=== PATIENT | male | born 1990 | race African-American/Black ===

== ENCOUNTER 2017-03-16 21:09 | Emergency (ER) | payer MEDICAID ==
[~2017-03-16] VITALS: Ht 180.3 cm; Wt 99.8 kg
--- NOTE | 2017-03-16 21:09 | NUR ---
PATIENT PRESENTS TO ED WITH C/O AB PAIN NAUSEA AND VOMIT X 2 HOURS; SKIN IS PINK/WARM/DRY; AAOX4 WITH EVEN AND STEADY GAIT; LUNGS CLEAR BL; HR EVEN AND REGULAR; PT DENIES ANY FEVER, CP, SOB, OR COUGH AT THIS TIME; PATIENT STATES PAIN OF 7/10 AT THIS TIME; VSS; PATIENT POSITIONED FOR COMFORT; HOB ELEVATED; BEDRAILS UP X2; BED DOWN. ER MD MADE AWARE OF PT STATUS.
--- NOTE | 2017-03-16 21:10 | NUR ---
Dr. Ayala evaluating patient
[2017-03-16 21:13] VITALS: BP 131/74
--- NOTE | 2017-03-16 21:17 | NUR ---
PT ERIK BLS. TAKEN TO BED 5
[2017-03-16] MEDS ORDERED: NACL 0.9% 1,000 ML IV ONE (21:30)
[2017-03-16] MEDS ORDERED: KETOROLAC 30 MG/ML VIAL IVP ONE (21:30)
[2017-03-16 22:22] LABS: BASOPHILS # (AUTO) 0.3 K/uL (0.00-0.22); BASOPHILS % (AUTO) 2.7 % (0.0-2.0); EOSINOPHILS # (AUTO) 0.2 K/uL (0-0.4); EOSINOPHILS % (AUTO) 2.5 % (0.0-4.0); HEMATOCRIT 45.9 % (36-52); MEAN CORPUSCULAR HEMOGLOBIN 28 pg (27-31); MEAN CORPUSCULAR HGB CONC 33 g/dL (33-37); MEAN CORPUSCULAR VOLUME 86 fL (80-94); MONOCYTES # (AUTO) 0.8 K/uL (0.8-1.0); MONOCYTES % (AUTO) 8.3 % (1.7-9.3); NEUTROPHILS # (AUTO) 7.2 K/uL (1.8-7.7); NEUTROPHILS % (AUTO) 75.5 % (42.2-75.2); PLATELET COUNT (AUTO) 223 K/uL (140-450); RED BLOOD CELL COUNT(AUTO) 5.31 MIL/uL (4.20-6.10); RED CELL DISTRIBUTION WIDTH 12.2 % (11.6-13.7); WHITE BLOOD COUNT (AUTO) 9.5 K/uL (4.8-10.8)
[2017-03-16] MEDS ORDERED: ONDANSETRON 4 MG/2 ML VIAL IVP ONE (22:35)
[2017-03-16 22:50] LABS: ANION GAP 14.2 (8-16); CARBON DIOXIDE 25.8 mmol/L (21-32)
[2017-03-16 22:51] LABS: ALBUMIN 4.3 g/dL (3.4-5.0); CALCIUM 8.7 mg/dL (8.5-10.1); CREATININE 1.2 mg/dL (0.7-1.3); TOTAL BILIRUBIN 1.1 mg/dL (0.0-1.0); TOTAL PROTEIN, SERUM 8.7 g/dL (6.4-8.2)
[2017-03-16 22:54] LABS: APPEARANCE,URINE SL CLOUDY (CLEAR); BILIRUBIN,URINE NEGATIVE (NEGATIVE); BLOOD, URINE TRACE-I (NEGATIVE); COLOR,URINE YELLOW (YELLOW); LEUKOCYTE ESTERASE ,URINE NEGATIVE (NEGATIVE); NITRITE, URINE NEGATIVE (NEGATIVE); PROTEIN,URINE 1+ (NEGATIVE); UGLUCOSE NEGATIVE (NEGATIVE); UROBILINOGEN,URINE 0.2 EU/dL (0.2 - 1)
[2017-03-16 23:10] LABS: BACTERIA,URINE FEW /HPF (None Seen); MUCUS,URINE 4+ /LPF (None Seen); RBC,URINE 0-5 (RARE) /HPF (0-5); SQUAMOUS EPITHELIAL CELL,UR 0-3 (FEW) /LPF (0-3 (FEW)); WBC,URINE 0-5 (RARE) /HPF (0-5)
--- NOTE | 2017-03-16 23:41 | NUR ---
IV removed, catheter intact and site benign. Applied folded 4x4 gauze and tape to stop bleeding.
--- NOTE | 2017-03-16 23:45 | NUR ---
Patient discharged with v/s stable BY ER MD DR SUAREZ. Written and verbal after care instructions given and explained BY ER MD DR SUAREZ . Patient verbalized understanding. Ambulatory with steady gait. All questions addressed prior to discharge BY ER MD DR SUAREZ. Advised to follow up with PMD.
[2017-03-16 23:46] VITALS: BP 122/76
== END 2017-03-16 23:45 | disposition home or self-care (01) ==
LOC: MED 21:09
DX: K52.9 Noninfective gastroenteritis and colitis, unspecified (principal)
CPT/HCPCS: 36415; 80053; 81001; 82150; 83690; 85025; 96361; 96374; 96375; 99285; J1885; J2405; J7030

== ENCOUNTER 2017-06-27 09:58 | Emergency (ER) | payer MEDICAID ==
[~2017-06-27] VITALS: Ht 180.3 cm; Wt 96.3 kg
[2017-06-27 10:09] VITALS: BP 129/87
--- NOTE | 2017-06-27 10:14 | NUR ---
Patient ambulated to bed 3
--- NOTE | 2017-06-27 10:15 | NUR ---
PATIENT PRESENTS TO ED WITH C/O N/V X 1 DAY WITH ABDOMINAL PAIN TO LEFT UPPER QUADRANT. PT STATES HE HAS VOMITED X 5 TIMES TODAY AND IS UNABLE TO KEEP FOOD OR FLUIDS DOWN. PT DENIES DIARRHEA. SKIN IS PINK/WARM/DRY; AAOX4 WITH EVEN AND STEADY GAIT; LUNGS CLEAR BL; HR EVEN AND REGULAR; PT DENIES ANY FEVER, CP, SOB, OR COUGH AT THIS TIME; PATIENT STATES PAIN OF 0/10 AT THIS TIME; VSS; PATIENT POSITIONED FOR COMFORT; HOB ELEVATED; BEDRAILS UP X2; BED DOWN. ER MD MADE AWARE OF PT STATUS.
--- NOTE | 2017-06-27 10:22 | NUR ---
DR. UNDERWOOD EVALUATING PT AT BEDSIDE.
[2017-06-27] MEDS: ALUMINUM HYD/MAG/SIMETHICONE 30 ML UDC PO ONE (10:32)
[2017-06-27] MEDS: PANTOPRAZOLE 40 MG TABEC PO ONE (10:33)
[2017-06-27] MEDS: ONDANSETRON 4 MG ODT PO ONE (10:33)
--- NOTE | 2017-06-27 10:51 | NUR ---
PT RESTING COMFORTABLY. NO C/O PAIN OF DISCOMFORT AT THIS TIME. PT DENIES N/V. WILL CONTINUE TO MONITOR.
[2017-06-27] MEDS: ACETAMINOPHEN 325 MG TAB PO ONE (11:04)
[2017-06-27 11:10] VITALS: BP 120/61
--- NOTE | 2017-06-27 11:10 | NUR ---
Patient discharged with v/s stable. Written and verbal after care instructions given and explained. Patient alert, oriented and verbalized understanding of instructions. Ambulatory with steady gait. All questions addressed prior to discharge. ID band removed. Patient advised to follow up with PMD. Rx of ZOFRAN AND OMEPRAZOLE given. Patient educated on indication of medication including possible reaction and side effects. Opportunity to ask questions provided and answered.
== END 2017-06-27 11:10 | disposition home or self-care (01) ==
LOC: MED 09:58
DX: K21.9 Gastro-esophageal reflux disease without esophagitis (principal); F17.210 Nicotine dependence, cigarettes, uncomplicated
CPT/HCPCS: 99284; S0119

== ENCOUNTER 2017-09-22 18:51 | Emergency (ER) | payer MEDICAID ==
[~2017-09-22] VITALS: Ht 180.3 cm; Wt 107.2 kg
[2017-09-22 19:15] VITALS: BP 130/96
--- NOTE | 2017-09-22 19:50 | NUR ---
27Y M BIB FAMILY C/O FLU-LIKE SYMPTOMS, CHILLS, ODELL, NASAL CONGESTION, AND CHRONIC BRONCHITIS. PT DENIES ANY N/V/D, CP AT THE MOMENT. PT AAOX4.
[2017-09-22] MEDS ORDERED: ALBUTEROL SULFATE/IPRATROPIU 3 ML SOL IH ONE (20:05)
[2017-09-22] MEDS ORDERED: IBUPROFEN 800 MG TAB PO ONE (20:05)
--- NOTE | 2017-09-22 20:31 | NUR ---
FLU COMPLETED AND PLACED IN SPECIMEN CONTAINER
--- NOTE | 2017-09-22 20:58 | NUR ---
LAB CALLED, POSITIVE FOR FLU A NEG FLU B; ER MD DR WOO MADE AWARE.
[2017-09-22 21:11] VITALS: BP 122/71
--- NOTE | 2017-09-22 21:11 | NUR ---
Patient discharged with v/s stable. Written and verbal after care instructions given and explained. Patient alert, oriented and verbalized understanding of instructions. Ambulatory with steady gait. All questions addressed prior to discharge. ID band removed. Patient advised to follow up with PMD. Rx of ALBUTEROL INHALER, TAMIFLU 75MG, MOTRIN 800MG, AND PREDNISONE 20MG given. Patient educated on indication of medication including possible reaction and side effects. Opportunity to ask questions provided and answered.
== END 2017-09-22 21:11 | disposition home or self-care (01) ==
LOC: MED 18:51
DX: J09.X2 Influenza due to identified novel influenza A virus with other respiratory manifestations (principal); K21.9 Gastro-esophageal reflux disease without esophagitis; F17.210 Nicotine dependence, cigarettes, uncomplicated
CPT/HCPCS: 36415; 71045; 87804; 94640; 94760; 99285; J7620

== ENCOUNTER 2018-04-20 11:08 | Emergency (ER) | payer MEDICAID ==
[~2018-04-20] VITALS: Ht 180.3 cm; Wt 103.6 kg
[2018-04-20 11:32] VITALS: BP 143/90
--- NOTE | 2018-04-20 11:39 | NUR ---
PT AMBULATES TO BED 2
--- NOTE | 2018-04-20 11:42 | NUR ---
PT. CAME INTO THE ED DUE TO PAINFUL URINATION X 5 DAYS. PT. STATES " I HAD UNPROTECTED SEX 6 DAYS AGO AND ABOUT 5 DAYS AGO MY TESTICLES HAVE BEEN FEELING SORE". PT. HAS PAINFUL URINATION AND FREQUENCY, DENIES ANY DISCHARGE. NO FEVERS . NO N/V/D. PT. STATES " SKIN IS PEELING OFF AROUND HIS PENIS". DENIES ANY MED HX, DENIES ANY MEDICATION ALLERGIES. ER MD NOTIFIED. WILL CONTINUE TO MONITOR. SAFETY PRECAUTIONS IN PLACE. VSS.
--- NOTE | 2018-04-20 12:45 | NUR ---
PT. RESTING COMFORTABLY IN BED, RR EVEN AND UNLABORED. BLANKET PROVIDED. VSS. AT THIS TIME.
[2018-04-20 12:47] LABS: APPEARANCE,URINE CLEAR (CLEAR); BILIRUBIN,URINE 1+ (NEGATIVE); BLOOD, URINE NEGATIVE (NEGATIVE); COLOR,URINE YELLOW (YELLOW); LEUKOCYTE ESTERASE ,URINE NEGATIVE (NEGATIVE); NITRITE, URINE NEGATIVE (NEGATIVE); UGLUCOSE NEGATIVE (NEGATIVE)
--- NOTE | 2018-04-20 13:21 | NUR ---
PT. IS DISCHARGED BUT D/C PAPERWORK IS NOT AVAILABLE AT THIS TIME. WILL CONTINUE TO MONITOR.
[2018-04-20 13:50] VITALS: BP 140/88
--- NOTE | 2018-04-20 13:50 | NUR ---
Patient discharged with v/s stable. Written and verbal after care instructions given and explained. Patient alert, oriented and verbalized understanding of instructions. Ambulatory with steady gait. All questions addressed prior to discharge. ID band removed. Patient advised to follow up with PMD. Rx of CLOTRIMAZOLE AND DOXYCYCLINE 100MG CAPSULE given. Patient educated on indication of medication including possible reaction and side effects. Opportunity to ask questions provided and answered.
[2018-04-22 06:21] LABS: CHLAMYDIA TRACHOMATIS AMP DNA Negative (Negative)
== END 2018-04-20 13:50 | disposition home or self-care (01) ==
LOC: MED 11:08
DX: B37.89 Other sites of candidiasis (principal); N34.2 Other urethritis; N47.8 Other disorders of prepuce; K21.9 Gastro-esophageal reflux disease without esophagitis
CPT/HCPCS: 36415; 81003; 87491; 99284

== ENCOUNTER 2018-10-14 09:32 | Emergency (ER) | payer MEDICAID ==
[~2018-10-14] VITALS: Ht 180.3 cm; Wt 99.8 kg
[2018-10-14 09:55] VITALS: BP 140/78
--- NOTE | 2018-10-14 10:13 | NUR ---
BIB SELF WITH C/O PENILE PAIN, DICOMFORT, IRRITATION X 1 WEEK, IRRITATION WITH URINATION, - BURNING, - SWELLING, + REDNESS, - DISCHARGE. PT REPORTS UNPROTECTED SEXUAL INTERCOURSE 2-3 WEEKS AGO. VSS; PATIENT POSITIONED FOR COMFORT; HOB ELEVATED; BEDRAILS UP X1; BED DOWN. ER MD MADE AWARE OF PT STATUS.
--- NOTE | 2018-10-14 11:15 | NUR ---
Patient discharged with v/s stable. Written and verbal after care instructions given and explained. Patient alert, oriented and verbalized understanding of instructions. Ambulatory with steady gait. All questions addressed prior to discharge. ID band removed. Patient advised to follow up with PMD. Rx of mupirocin given. Patient educated on indication of medication including possible reaction and side effects. Opportunity to ask questions provided and answered.
[2018-10-14 11:19] VITALS: BP 140/78
== END 2018-10-14 11:15 | disposition home or self-care (01) ==
LOC: MED 09:32
DX: N48.1 Balanitis (principal); K21.9 Gastro-esophageal reflux disease without esophagitis
CPT/HCPCS: 81002; 99283

== ENCOUNTER 2019-09-03 15:48 | Emergency (ER) | payer MEDICAID ==
[~2019-09-03] VITALS: Ht 180.3 cm; Wt 97.1 kg
[2019-09-03 15:57] VITALS: BP 129/73
--- NOTE | 2019-09-03 16:09 | NUR ---
Patient ambulated to bed 2. RN evaluating patient at bedside.
--- NOTE | 2019-09-03 16:56 | NUR ---
PATIENT PRESENTS TO ED WITH THROAT AND EAR PAIN X 2 DAYS. PT STATES 8/10 SHARP PAIN UPON SWALLOWING. PT ALSO WITH PRODUCTIVE COUGH X 2 DAYS. PT TOOK TYLENOL THIS AM WHICH PROVIDED NO RELIEF. DENIES FVER, RUNNY NOSE, N/V/D; LUNGS CLEAR BL; VSS; PATIENT POSITIONED FOR COMFORT; HOB ELEVATED; BEDRAILS UP X2; BED DOWN. ER MD MADE AWARE OF PT STATUS. PMH: CHRONIC BRONCHITIS MEDS: ALBUTEROL INHALER PRN NKA
[2019-09-03] MEDS ORDERED: KETOROLAC 30 MG/ML VIAL IM ONE (19:10)
--- NOTE | 2019-09-03 19:12 | NUR ---
RECIVED REPORT FROM NELSON CHENEY.
--- NOTE | 2019-09-03 19:21 | NUR ---
TORADOL IM 30MG GIVEN FOR C/O 03/10 BACK AND THROAT PAIN. FLU A & B CAME BACK NEGATIVE.
--- NOTE | 2019-09-03 19:30 | NUR ---
Patient discharged with v/s stable. Written and verbal after care instructions given and explained. Patient alert, oriented and verbalized understanding of instructions. Ambulatory with steady gait. All questions addressed prior to discharge. ID band removed. Patient advised to follow up with PMD. Rx of PROMETHAZINE, NAPROXEN given. Patient educated on indication of medication including possible reaction and side effects. Opportunity to ask questions provided and answered.
[2019-09-03 19:40] VITALS: BP 129/73
== END 2019-09-03 19:30 | disposition home or self-care (01) ==
LOC: MED 15:48
DX: J06.9 Acute upper respiratory infection, unspecified (principal); M54.5 Low back pain; K21.9 Gastro-esophageal reflux disease without esophagitis; J42 Unspecified chronic bronchitis; F17.210 Nicotine dependence, cigarettes, uncomplicated; Z86.73 Personal history of transient ischemic attack (TIA), and cerebral infarction without residual deficits
CPT/HCPCS: 87804; 96372; 99283; J1885

== ENCOUNTER 2019-12-21 21:54 | Emergency (ER) | payer MEDICAID ==
[~2019-12-21] VITALS: Ht 180.3 cm; Wt 81.6 kg
[2019-12-21 22:04] VITALS: BP 148/92
[2019-12-21] MEDS: ONDANSETRON 4 MG/2 ML VIAL IVP ONE (23:00)
[2019-12-21] MEDS: KETOROLAC 30 MG/ML VIAL IVP ONE (23:00)
[2019-12-21] MEDS: NACL 0.9% 1,000 ML IV ONE ×2 (23:05→23:59)
[2019-12-21 23:20] LABS: BARBITURATE, URINE NEGATIVE ng/ml (NEG <=200); BENZODIAZEPINE, URINE NEGATIVE ng/mL (NEG <=200); COCAINE, URINE NEGATIVE ng/mL (NEG <=300)
[2019-12-21 23:21] LABS: CANNABINOID, URINE POSITIVE ng/mL (NEG <=50); OPIATE, URINE NEGATIVE ng/mL (NEG <=2000); PHENCYCLIDINE SCREEN,URINE NEGATIVE ng/mL (NEG <=25)
[2019-12-21 23:28] LABS: BASOPHILS # (AUTO) 0.1 K/uL (0.00-0.22); BASOPHILS % (AUTO) 0.8 % (0.0-2.0); EOSINOPHILS # (AUTO) 0.1 K/uL (0-0.4); EOSINOPHILS % (AUTO) 1.9 % (0.0-4.0); HEMATOCRIT 41.3 % (36-52); LYMPHOCYTES # (AUTO) 1.4 K/uL (2.0-11.5); LYMPHOCYTES % (AUTO) 20.8 % (20.5-51.1); MEAN CORPUSCULAR HEMOGLOBIN 30 pg (27-31); MEAN CORPUSCULAR HGB CONC 34 g/dL (33-37); MEAN CORPUSCULAR VOLUME 88.2 fL (80-94); MONOCYTES # (AUTO) 0.6 K/uL (0.8-1.0); MONOCYTES % (AUTO) 9.1 % (1.7-9.3); NEUTROPHILS # (AUTO) 4.5 K/uL (1.8-7.7); NEUTROPHILS % (AUTO) 67.4 % (42.2-75.2); PLATELET COUNT (AUTO) 242 K/uL (140-450); RED BLOOD CELL COUNT(AUTO) 4.69 MIL/uL (4.20-6.10); RED CELL DISTRIBUTION WIDTH 13.2 % (11.6-13.7)
[2019-12-21 23:30] LABS: WHITE BLOOD COUNT (AUTO) 6.7 K/uL (4.8-10.8)
[2019-12-21 23:38] LABS: ANION GAP 13.7 (8-16); CARBON DIOXIDE 26.6 mmol/L (21-32); CHLORIDE 102 mmol/L (98-107); CREATININE 1.3 mg/dL (0.6-1.3); GFR ARICAN-AMERICAN 83 mL/min (>90); GLUCOSE 107 mg/dL (74-106); POTASSIUM 3.3 mmol/L (3.5-5.1); SODIUM SERUM 139 mmol/L (136-145); UREA NITROGEN, BLOOD 15 mg/dL (7-18)
[2019-12-21 23:43] LABS: ALBUMIN 3.7 g/dL (3.4-5.0); ASPARTATE AMINOTRANSFERASE 24 U/L (15-37)
[2019-12-21 23:44] LABS: ACETAMINOPHEN < 0.5 ug/ml (10-30); SALICYLATE < 2.8 mg/dL (2.8-20.0)
[2019-12-22 00:41] VITALS: BP 148/92
== END 2019-12-22 00:40 | disposition home or self-care (01) ==
LOC: MED 21:54
DX: K31.84 Gastroparesis (principal); F12.90 Cannabis use, unspecified, uncomplicated; K21.9 Gastro-esophageal reflux disease without esophagitis
CPT/HCPCS: 36415; 74176; 80053; 80305; 83690; 85025; 87040; 96361; 96374; 96375; 99284; G0480; G0482; J1885; J2405; J7030

== ENCOUNTER 2020-06-05 14:47 | Emergency (ER) | payer MEDICAID ==
[~2020-06-05] VITALS: Ht 180.3 cm; Wt 103.4 kg
[2020-06-05 15:02] VITALS: BP 143/84
--- NOTE | 2020-06-05 15:06 | NUR ---
29/M BIB SELF C/O COUGH, SORE THROAT, ODELL,BODY ACHE 6/10 ,CHILL ON & OFF X 5 DAYS. MED HX: ASTHMA.
--- NOTE | 2020-06-05 16:24 | NUR ---
COVID SWAB DONE.
--- NOTE | 2020-06-05 16:34 | NUR ---
Patient discharged with v/s stable. Written and verbal after care instructions given and explained. Patient alert, oriented and verbalized understanding of instructions. Ambulatory with steady gait. All questions addressed prior to discharge. ID band removed. Patient advised to follow up with PMD. Rx of Promethazine DM and Tylenol 500mg given. Patient educated on indication of medication including possible reaction and side effects. Opportunity to ask questions provided and answered.
== END 2020-06-05 16:34 | disposition home or self-care (01) ==
LOC: MED 14:47
DX: U07.1 COVID-19 (principal); J06.9 Acute upper respiratory infection, unspecified; F12.90 Cannabis use, unspecified, uncomplicated; J45.909 Unspecified asthma, uncomplicated; K21.9 Gastro-esophageal reflux disease without esophagitis
CPT/HCPCS: 71045; 99284; U0003; 99283

== ENCOUNTER 2020-12-22 13:21 | Emergency (ER) | payer MEDICAID ==
[~2020-12-22] VITALS: Ht 180.3 cm; Wt 98.4 kg
[2020-12-22 13:30] VITALS: BP 150/82
[2020-12-22] MEDS ORDERED: ONDANSETRON 4 MG ODT PO ONE (13:45)
[2020-12-22] MEDS ORDERED: DEXAMETHASONE 4 MG/ML VIAL PO ONE (14:05)
[2020-12-22] MEDS ORDERED: AMOXIL/CLAVULANATE 875/125 MG 1 TAB PO ONE (14:05)
[2020-12-22] MEDS ORDERED: AMOX1TAB8 PO (15:25)
[2020-12-22] MEDS ORDERED: ONDA-24 PO (15:25)
[2020-12-22 15:50] VITALS: BP 150/82
== END 2020-12-22 15:51 | disposition home or self-care (01) ==
LOC: MED 13:21
DX: J03.90 Acute tonsillitis, unspecified (principal); R11.0 Nausea; H92.02 Otalgia, left ear; J45.909 Unspecified asthma, uncomplicated; K21.9 Gastro-esophageal reflux disease without esophagitis; Z79.899 Other long term (current) drug therapy
CPT/HCPCS: 81002; 99284; J1100; Q0162

== ENCOUNTER 2021-03-25 22:50 | Emergency (ER) | payer MEDICAID ==
[~2021-03-25] VITALS: Ht 180.3 cm; Wt 100.2 kg
[~2021-03-25 22:50] MED LIST: AMOX1TAB8 PO; ONDA-24 PO
[2021-03-25 23:13] VITALS: BP 144/87
--- NOTE | 2021-03-25 23:20 | NUR ---
PT AMBULATED TO LOBBY TO A/W BED.
--- NOTE | 2021-03-26 | NUR ---
PT EVALUTED BY DR. HAILE. NO NURSING CARE PROVIDED.
[2021-03-26] MEDS ORDERED: IBUP-2213 PO (00:11)
[2021-03-26] MEDS ORDERED: CEPH-588 PO (00:11)
--- NOTE | 2021-03-26 00:18 | NUR ---
Patient discharged with v/s stable. Written and verbal after care instructions given and explained. Patient alert, oriented and verbalized understanding of instructions. Ambulatory with steady gait. All questions addressed prior to discharge. ID band removed. Patient advised to follow up with PMD. Rx of KEFLEX AND MOTRIN given. Patient educated on indication of medication including possible reaction and side effects. Opportunity to ask questions provided and answered.
== END 2021-03-26 00:18 | disposition home or self-care (01) ==
LOC: MED 22:50
DX: J02.9 Acute pharyngitis, unspecified (principal); J45.909 Unspecified asthma, uncomplicated; K21.9 Gastro-esophageal reflux disease without esophagitis; Z79.899 Other long term (current) drug therapy
CPT/HCPCS: 99283

== ENCOUNTER 2021-04-08 15:45 | Emergency (ER) | payer MEDICAID, SELFPAY ==
[~2021-04-08] VITALS: Ht 180.3 cm; Wt 99.8 kg
[~2021-04-08 15:45] MED LIST changes: +CEPH-588 PO; +IBUP-2213 PO
[2021-04-08 16:43] VITALS: BP 101/41
[2021-04-08] MEDS ORDERED: NAPR-54 PO (17:11)
[2021-04-08] MEDS ORDERED: LOPE1TAB14 PO (17:11)
[2021-04-08] MEDS ORDERED: PROM118S5 PO (17:11)
--- NOTE | 2021-04-08 17:20 | NUR ---
NOVEL SWAB DONE. WALKED TO LAB.
[2021-04-08] MEDS ORDERED: PSEU120T23 PO (17:45)
[2021-04-08 17:50] VITALS: BP 101/41
--- NOTE | 2021-04-08 17:55 | NUR ---
Jesus gaxiola in [facility] - 04/08/21 at 1755 by [facility] SWAB DONE. WALKED TO LAB.
--- NOTE | 2021-04-08 18:15 | NUR ---
Patient discharged with v/s stable. Written and verbal after care instructions given and explained. Patient alert, oriented and verbalized understanding of instructions. Ambulatory with steady gait. All questions addressed prior to discharge. ID band removed. Patient advised to follow up with PMD. Rx of IMODIUM, NAPROXEN, PROMETHAZINE given. Patient educated on indication of medication including possible reaction and side effects. Opportunity to ask questions provided and answered.
== END 2021-04-08 18:15 | disposition home or self-care (01) ==
LOC: MED 15:45
DX: U07.1 COVID-19 (principal); J45.909 Unspecified asthma, uncomplicated; K21.9 Gastro-esophageal reflux disease without esophagitis
CPT/HCPCS: 99283; U0003

== ENCOUNTER 2021-10-28 19:20 | Emergency (ER) | payer MEDICAID, SELFPAY ==
[~2021-10-28] VITALS: Ht 180.3 cm; Wt 96.6 kg
[~2021-10-28 19:20] MED LIST changes: +AMOX-1230 PO; -AMOX1TAB8 PO; +LOPE1TAB14 PO; +NAPR-54 PO; +ONDA-188 PO; -ONDA-24 PO; +PROM118S5 PO; +PSEU120T23 PO
[2021-10-28 19:53] VITALS: BP 139/76
[2021-10-28] MEDS ORDERED: PENICILLIN G BENZATHINE L-A 1.2 MU/2 ML SYR IM ONE (20:30)
[2021-10-28] MEDS ORDERED: KETOROLAC 60 MG/2 ML VIAL IM ONE (20:30)
[2021-10-28] MEDS ORDERED: PRED20TA5 PO (20:45)
[2021-10-28] MEDS ORDERED: ACET-8386 PO (20:45)
[2021-10-28] MEDS ORDERED: IBUP-2213 PO (20:45)
[2021-10-28 21:01] VITALS: BP 140/78
== END 2021-10-28 21:00 | disposition home or self-care (01) ==
LOC: MED 19:20
DX: J02.0 Streptococcal pharyngitis (principal); J45.909 Unspecified asthma, uncomplicated; F12.90 Cannabis use, unspecified, uncomplicated; K21.9 Gastro-esophageal reflux disease without esophagitis; Z79.899 Other long term (current) drug therapy
CPT/HCPCS: 96372; 99284; J0561; J1885

== ENCOUNTER 2022-03-04 08:46 | Emergency (ER) | payer MEDICAID ==
[~2022-03-04] VITALS: Ht 180.3 cm; Wt 94.9 kg
[~2022-03-04 08:46] MED LIST changes: +ACET-8386 PO; +PRED20TA5 PO
[2022-03-04 09:02] VITALS: BP 128/88
--- NOTE | 2022-03-04 09:10 | NUR ---
BIB SELF C/O FEVER, COUGH, ODELL, SORE THROAT, BODY ACHES X YESTERDAY. COWORKER DANA TESTED +. ORAL TEMP 100.1 AT THIS TIME. PT TOOK TYLENOL AT 6 AM TODAY. PMH: ASTHMA
--- NOTE | 2022-03-04 09:14 | NUR ---
COVID CHU, FLU SWABS DONE.
--- NOTE | 2022-03-04 10:47 | NUR ---
PT AMBULATED TO CHAIR A
[2022-03-04 10:48] VITALS: BP 142/79
[2022-03-04] MEDS ORDERED: ACET-8386 PO (11:36)
[2022-03-04] MEDS ORDERED: NAPR-54 PO (11:36)
[2022-03-04] MEDS ORDERED: TAM75 PO (11:36)
[2022-03-04] MEDS ORDERED: KETOROLAC 30 MG/ML VIAL IM ONE (11:40)
--- NOTE | 2022-03-04 11:57 | NUR ---
Patient discharged with v/s stable. Written and verbal after care instructions ABOUT INFLUENZA given and explained. Patient alert, oriented and verbalized understanding of instructions. Ambulatory with steady gait. All questions addressed prior to discharge. ID band removed. Patient advised to follow up with PMD. Rx of NAPROXEN, NORCO 5-325, TAMIFLU given. Patient educated on indication of medication including possible reaction and side effects. Opportunity to ask questions provided and answered. Addendum: 03/04/22 at 1200 by [email or web address] PT PROVIDED WITH WORK NOTE TILL 03/07/22
== END 2022-03-04 11:57 | disposition home or self-care (01) ==
LOC: MED 08:46
DX: J11.1 Influenza due to unidentified influenza virus with other respiratory manifestations (principal); M79.10 Myalgia, unspecified site; J45.909 Unspecified asthma, uncomplicated; K21.9 Gastro-esophageal reflux disease without esophagitis; Z79.899 Other long term (current) drug therapy
CPT/HCPCS: 87426; 87804; 96372; 99283; J1885

== ENCOUNTER 2022-04-29 17:11 | Emergency (ER) | payer MEDICAID ==
[~2022-04-29] VITALS: Ht 180.3 cm; Wt 100.7 kg
[~2022-04-29 17:11] MED LIST changes: +TAM75 PO
[2022-04-29 17:31] VITALS: BP 130/78
--- NOTE | 2022-04-29 17:38 | NUR ---
PT AMB TO BED 6.
--- NOTE | 2022-04-29 17:38 | NUR ---
[facility]: RIGHT EYE 20/30, LEFT EYE 20/25, BOTH EYES 20/25
[2022-04-29] MEDS ORDERED: CILOS OP (18:21)
--- NOTE | 2022-04-29 18:37 | NUR ---
31/M PRESENTS TO ED WITH C/O BILATERAL EYE IRRITATION AND PHOTOPHOBIA X3 DAYS. STATES HE RECENTLY BEGAN USING NEW CONTACT LENSES AND BELIEVES IT MAY BE RELATED. PATIENT DENIES INJURY OR TRAUMA TO EYES, DENIES VISION CHANGES.
[2022-04-29 18:41] VITALS: BP 130/78
--- NOTE | 2022-04-29 18:41 | NUR ---
Patient discharged with v/s stable. Written and verbal after care instructions ABOUT BACTERIAL CONJUNCTIVITIS given and explained. Patient alert, oriented and verbalized understanding of instructions. Ambulatory with steady gait. All questions addressed prior to discharge. ID band removed. Patient advised to follow up with PMD. Rx of CILOXAN given. Patient educated on indication of medication including possible reaction and side effects. Opportunity to ask questions provided and answered.
== END 2022-04-29 18:41 | disposition home or self-care (01) ==
LOC: MED 17:11
DX: H10.9 Unspecified conjunctivitis (principal)
CPT/HCPCS: 99283

== ENCOUNTER 2023-08-22 16:44 | Emergency (ER) | payer MEDICAID ==
[~2023-08-22] VITALS: Ht 182.9 cm; Wt 81.6 kg
[~2023-08-22 16:44] MED LIST changes: -ACET-8386 PO; +ACET-8905 PO; +CILOS OP
[2023-08-22 17:26] VITALS: BP 128/62; PULSE 86; RESP 18; TEMP 97; O2SAT 98
[2023-08-22] MEDS ORDERED: methocarbamoL 500 MG TAB PO STA (19:03)
[2023-08-22] MEDS ORDERED: KETOROLAC 30 MG/ML VIAL IM ONE (19:05)
[2023-08-22] MEDS ORDERED: ACETAMINOPHEN 325 MG TAB PO ONE (19:05)
[2023-08-22] MEDS ORDERED: MORPHINE SULFATE 4 MG/ML SYR IM ONE (20:10)
[2023-08-22] MEDS ORDERED: IBUP-2213 PO (20:53)
[2023-08-22] MEDS ORDERED: METH-1681 PO (20:54)
[2023-08-22] MEDS ORDERED: LID5T TP (20:54)
[2023-08-22] MEDS ORDERED: MORPHINE SULFATE 4 MG/ML SYR ONE (21:12)
== END 2023-08-22 21:30 | disposition home or self-care (01) ==
LOC: MED 16:44
DX: S30.0XXA Contusion of lower back and pelvis, initial encounter (principal); M25.552 Pain in left hip; J45.909 Unspecified asthma, uncomplicated; K21.9 Gastro-esophageal reflux disease without esophagitis; Z79.899 Other long term (current) drug therapy; Z79.1 Long term (current) use of non-steroidal anti-inflammatories (NSAID); Z79.2 Long term (current) use of antibiotics; W18.39XA Other fall on same level, initial encounter; Y92.89 Other specified places as the place of occurrence of the external cause; Y93.89 Activity, other specified; Y99.8 Other external cause status
CPT/HCPCS: 72131; 72192; 73502; 73552; 73562; 96372; 99285; J1885; J2270

== ENCOUNTER 2023-08-29 15:04 | Emergency (ER) | payer MEDICAID ==
[~2023-08-29] VITALS: Ht 180.3 cm; Wt 90.7 kg
[~2023-08-29 15:04] MED LIST changes: +LID5T TP; +METH-1681 PO
[2023-08-29 15:11] VITALS: BP 111/59; PULSE 85; RESP 18; TEMP 99; O2SAT 100
[2023-08-29] MEDS ORDERED: MORPHINE SULFATE 4 MG/ML SYR IM ONE (16:20)
[2023-08-29] MEDS ORDERED: IBUP-2213 PO (16:22)
[2023-08-29] MEDS ORDERED: NALO4SPR NS (16:22)
[2023-08-29] MEDS ORDERED: ACET-2619 PO (16:22)
[2023-08-29] MEDS ORDERED: HYDR-5191 PO (16:23)
== END 2023-08-29 16:42 | disposition home or self-care (01) ==
LOC: MED 15:04
DX: S70.12XA Contusion of left thigh, initial encounter (principal); M25.552 Pain in left hip; Z79.899 Other long term (current) drug therapy; X58.XXXA Exposure to other specified factors, initial encounter; Y93.89 Activity, other specified; Y92.89 Other specified places as the place of occurrence of the external cause; Y99.8 Other external cause status
CPT/HCPCS: 96372; 99283; J2270

== ENCOUNTER 2023-12-12 09:15 | Emergency (ER) | payer MEDICAID ==
[~2023-12-12] VITALS: Ht 180.3 cm; Wt 88.0 kg
[~2023-12-12 09:15] MED LIST changes: +ACET-2619 PO; +HYDR-5071 PO; +NALO4SPR NS; +NAPR-337 PO; -NAPR-54 PO
[2023-12-12 09:25] VITALS: BP 127/87; PULSE 93; RESP 18; TEMP 98.9; O2SAT 100
[2023-12-12] MEDS ORDERED: LOTC TP (11:17)
== END 2023-12-12 11:44 | disposition home or self-care (01) ==
LOC: MED 09:15
DX: R21 Rash and other nonspecific skin eruption (principal); B37.9 Candidiasis, unspecified; J45.909 Unspecified asthma, uncomplicated; K21.9 Gastro-esophageal reflux disease without esophagitis; Z79.1 Long term (current) use of non-steroidal anti-inflammatories (NSAID); Z79.2 Long term (current) use of antibiotics; Z79.899 Other long term (current) drug therapy
CPT/HCPCS: 99282

== ENCOUNTER 2023-12-19 09:19 | Emergency (ER) | payer MEDICAID ==
[~2023-12-19] VITALS: Ht 180.3 cm; Wt 88.0 kg
[~2023-12-19 09:19] MED LIST changes: +LOTC TP
[2023-12-19 09:32] VITALS: BP 143/97; PULSE 88; RESP 18; TEMP 98.3; O2SAT 97
[2023-12-19 10:42] LABS: APPEARANCE,URINE CLEAR (CLEAR); BILIRUBIN,URINE NEGATIVE (NEGATIVE); BLOOD, URINE NEGATIVE (NEGATIVE); COLOR,URINE YELLOW (YELLOW); LEUKOCYTE ESTERASE ,URINE NEGATIVE (NEGATIVE); NITRITE, URINE NEGATIVE (NEGATIVE); PH,URINE 6.5 (5.0-9.0); PROTEIN,URINE NEGATIVE (NEGATIVE); UGLUCOSE NEGATIVE (NEGATIVE); UROBILINOGEN,URINE 0.2 EU/dL (0.2 - 1)
[2023-12-19] MEDS ORDERED: BACI-418 TP (11:14)
== END 2023-12-19 11:21 | disposition home or self-care (01) ==
LOC: MED 09:19
DX: N47.7 Other inflammatory diseases of prepuce (principal); J45.909 Unspecified asthma, uncomplicated; K21.9 Gastro-esophageal reflux disease without esophagitis; Z79.1 Long term (current) use of non-steroidal anti-inflammatories (NSAID); Z79.2 Long term (current) use of antibiotics; Z79.899 Other long term (current) drug therapy
CPT/HCPCS: 81003; 82948; 87491; 99283